=== PATIENT | male | born 1995 | race African-American/Black ===

== ENCOUNTER 2018-12-13 00:11 | Emergency (ER) | payer OTHER ==
[~2018-12-13] VITALS: Ht 180.3 cm; Wt 63.5 kg
[2018-12-13 00:21] VITALS: BP 115/74
[2018-12-13] MEDS ORDERED: NAPROSYN500 MG PO (00:44)
== END 2018-12-13 00:55 | disposition home or self-care (01) ==
LOC: ER 00:11
DX: S40.012A Contusion of left shoulder, initial encounter (principal); V89.2XXA Person injured in unspecified motor-vehicle accident, traffic, initial encounter; Y92.89 Other specified places as the place of occurrence of the external cause; Y93.89 Activity, other specified; Y99.8 Other external cause status

== ENCOUNTER 2019-01-20 19:43 | Emergency (ER) | payer OTHER ==
[~2019-01-20] VITALS: Ht 180.3 cm; Wt 63.5 kg
[~2019-01-20 19:43] MED LIST: NAPROSYN500 MG PO
[2019-01-20 20:34] VITALS: BP 113/76
== END 2019-01-20 20:30 | disposition home or self-care (01) ==
LOC: ER 19:43
PROVIDERS: Emergency Medicine
DX: Z20.2 Contact with and (suspected) exposure to infections with a predominantly sexual mode of transmission (principal)